=== PATIENT | male | born 1990 | race Caucasian/White ===

== ENCOUNTER 2019-10-05 14:01 | Emergency (ER) | payer SELFPAY ==
[~2019-10-05] VITALS: Ht 175.3 cm; Wt 86.2 kg
--- NOTE | 2019-10-05 14:04 | NUR ---
Patient to [facility] for evaluation.
--- NOTE | 2019-10-05 14:05 | NUR ---
Pt [id number] ambulated into ED in handcuffs escorted by law enforcement for medical clearance prior to booking. Pt c/o abrasion to forehead and has hx of headaches. No active bleeding noted. No other injuries/complaints per pt/noted. Will continue to monitor.
--- NOTE | 2019-10-05 14:10 | NUR ---
ER Dr. Sampson at bedside examining patient.
[2019-10-05 14:11] VITALS: BP_SYST 141
[2019-10-05 14:26] VITALS: BP_SYST 141
--- NOTE | 2019-10-05 14:26 | NUR ---
Patient given written and verbal discharge instructions and verbalizes understanding. ER MD Sampson discussed with patient the results and treatment provided. Patient in stable condition. ID arm band removed. No Rx given. Patient educated on pain management and to follow up with PMD. Pain Scale 0. Opportunity for questions provided and answered. Medication side effect fact sheet provided.
== END 2019-10-05 14:26 ==
LOC: SED 14:01
DX: S01.81XA Laceration without foreign body of other part of head, initial encounter (principal); Z02.89 Encounter for other administrative examinations; Y93.E1 Activity, personal bathing and showering; Y93.89 Activity, other specified; Y92.89 Other specified places as the place of occurrence of the external cause; Y99.8 Other external cause status
CPT/HCPCS: 99283